=== PATIENT | female | born 1955 | race Caucasian/White ===

== ENCOUNTER → 2021-06-20 | Outpatient (CLI) | payer BC ==
[~2021-06-20] MED LIST: IOHEXOL 350 MG/ML 100 ML VIAL. IV ONE
--- NOTE | 2021-06-20 13:11 | RAD ---
PQRS Compliance Statement: One or more of the following individualized dose reduction techniques were utilized for this examinat ion: 1. Automated exposure control 2. Adjustment of the mA and/or kV according to patient size 3. Use of iterative reconstruction technique CTA CHEST 06/20/2021 12:05 PM INDICATION: Elevated d-dimer. Chest heaviness. COMPARISON: None available TECHNIQUE: Axial CT images of the chest were obtained after the intravenous administration of nonioni c contrast. Coronal and sagittal reformats are provided. Maximum intensity projection images of the t horacic vasculature are provided. FINDINGS: The thyroid gland is normal in appearance. There are no pathologically enlarged axillary, mediastinal or hilar lymph nodes. The heart size is within normal limits. No significant pericardial effusion. T horacic aorta is normal in course and caliber. There is adequate opacification of the pulmonary arterial system. There there are no filling defects within the pulmonary arterial system to suggest acute or chronic pulmonary embolus. There are no suspicious solid noncalcified pulmonary nodules. Mild patchy peripheral subpleural groun dglass opacities identified without significant consolidative change. There are no pleural effusions. No pulmonary vascular congestion or pneumothorax. Visualized portions of the upper abdomen are within normal limits. No suspicious osseous lesions are visualized. IMPRESSION: There is no evidence for acute or chronic pulmonary embolism. Mild patchy peripheral subpleural groundglass opacities identified without significant consolidative change. Consideration may be given for Covid pneumonia. Electronically signed by: Emilia Good MD (06/20/2021 1:08 PM) [id number]
== END ==
LOC: CT 11:52
PROVIDERS: ATTEND Family Medicine
DX: R07.89 Other chest pain (principal); R79.89 Other specified abnormal findings of blood chemistry
CPT/HCPCS: 71275; Q9967